=== PATIENT | male | born 1930 | race Caucasian/White ===

== ENCOUNTER 2018-03-13 12:48 | Inpatient (IN) ==
[2018-03-13 13:41] LABS: Basophils % 0.6 %; Eosinophils # 0.1 K/mcL (0.0-0.6); Eosinophils % 1.5 %; Hematocrit 32.7 % (37.5-50.1); Hemoglobin 9.8 g/dL (12.9-16.9); Immature Granulocytes % 0.3 % (0-4); Lymphocytes # 0.7 K/mcL (0.6-4.6); Lymphocytes % 11.2 %; Mean Corpuscular Hemoglobin 28.2 pg (28.0-33.3); Mean Corpuscular Volume 94.2 fL (83.0-100.0); Mean Platelet Volume 9.2 fL (9.4-12.4); Monocytes # 0.5 K/mcL (0.0-1.3); Monocytes % 8.1 %; Neutrophils # 4.8 K/mcL (1.6-8.9); Platelet Count 135 K/mcL (140-400); Red Blood Count 3.47 M/mcL (4.19-5.50); Red Cell Distribution Width 18.7 % (11.5-14.5); Segmented Neutrophils % 78.3 %
[2018-03-13 13:49] LABS: Activated Partial Thrombo Time 50.4 Seconds (26.0-36.0)
--- NOTE | 2018-03-13 13:56 | Emergency Department Note ---
Disposition Clinical Impression: CKD (chronic kidney disease) Qualifiers: Chronic kidney disease stage: stage 2 (mild) Qualified Code(s): N18.2 - Chronic kidney disease, stage 2 (mild) Atrial fibrillation Qualifiers: Atrial fibrillation type: chronic Qualified Code(s): I48.2 - Chronic atrial fibrillation Renal cell cancer Qualifiers: Laterality: unspecified laterality Qualified Code(s): C64.9 - Malignant neoplasm of unspecified kidney, except renal pelvis Anemia Qualifiers: Anemia type: other cause Other causes of anemia: other cause, not classified Qualified Code(s): D64.89 - Other specified anemias Hematuria Qualifiers: Hematuria type: gross Qualified Code(s): R31.0 - Gross hematuria Acute exacerbation of CHF (congestive heart failure) Qualifiers: Heart failure type: systolic Qualified Code(s): I50.23 - Acute on chronic systolic (congestive) heart failure Disposition: Admitted As Inpatient Time of Disposition: 17:22 General Adult HPI - General Chief complaint: ED General Medical Stated complaint: Hemturia,CHF,AMS Time Seen by Provider: 03/13/18 13:05 Source: patient Mode of arrival: ambulatory Limitations: no limitations Nursing Notes Reviewed: Yes Vital Signs Reviewed: Yes - History of Present Illness HPI Narrative: 87-year-old male with history of renal cell carcinoma, CHF arrives to the emergency department with concern for hematuria, difficulty breathing and is progressively worsened as well as bilateral lower surety swelling combined with family concern for alteration in mentation. Family notes this is been ongoing for the past couple days. Family physician instructed patient to come to the emergency department for diuresis. The patient has a history of liver cirrhosis and was noted to have no elevation in an ammonia level I day ago. The patient is on Xarelto for history of atrial fibrillation that is chronic. He denies any complaints at this time. He is lucid and answering questions appropriate but this seem slow to respond to some answers. Patient denies any specific complaints other than chronic unilateral leg swelling as well as chronic shortness of breath. The patient is resting comfortably in the room without any hypoxia or tachycardia. He has no abdominal pain on examination. The patient d oes have 2+ pitting edema bilateral lower extremities with chronic venous stasis changes. No other acute changes noted. Pain Scale: 0 - Related Data Home Medications Medication Instructions Recorded Confirmed Allopurinol [Zyloprim 100 MG] 200 mg PO DAILY 11/29/17 03/13/18 Atorvastatin [Lipitor] 20 mg PO HS 11/29/17 03/13/18 Cholecalciferol (Vitamin D3) 2,000 unit PO DAILY 11/29/17 03/13/18 [Vitamin D3] Digoxin [Lanoxin] 0.125 mg PO DAILY 11/29/17 03/13/18 Ferrous Gluconate 324 mg PO BID 11/29/17 03/13/18 Rivaroxaban [Xarelto] 15 mg PO DAILY 11/29/17 03/13/18 Vitamin B Complex [B Complex] 1 each PO DAILY 11/29/17 03/13/18 Bumetanide 8 mg PO DAILY 03/13/18 03/13/18 Metoprolol Succinate [Toprol Xl] 50 mg PO DAILY 03/13/18 03/13/18 Previous Rx's Medication Instructions Recorded Ascorbic Acid [Vitamin C] 500 mg PO 0630 #30 tablet 12/03/17 Tamsulosin [Flomax] 0.4 mg PO DAILY #30 capsule 12/03/17 Allergies Allergy/AdvReac Type Severity Reaction Status Date / Time No Known Allergies Allergy Verified 12/29/16 13:55 All systems ED: reviewed and negative except as stated. Constitutional: Reports: weakness. Denies: fever, chills ENT ED: Denies: dysphagia Cardiovascular: Denies: chest pain Respiratory: Reports: dyspnea. Denies: cough, wheezes, sputum production Gastrointestinal: Reports: hematochezia (baseline). Denies: abdominal pain, nausea, vomiting, diarrhea, constipation Genitourinary: Reports: hematuria. Denies: urgency, dysuria Musculoskeletal: Denies: back pain, neck pain Integumentary: Denies: rash Neurological: Reports: confusion. Denies: headache, weakness Past Medical History - Past Medical History Attestation: Yes The following information was validated with the patient. Source: patient, old records reviewed Medical history: Reports: atrial fibrillation, cirrhosis, GI bleed, other Surgical history: Reports: cancer surgery, cholecystectomy, coronary bypass (CABG), herniorrhaphy Psychiatric history: Reports: no psych history - Social History Smoking Status: Never smoker Smokeless Tobacco Status: No Alcohol use: Reports: none Drug use: Reports: none Physical Exam - General Limitations: no limitations General appearance: alert, in no apparent distress - Head Head exam: atraumatic, normocephalic, normal inspection - Eye Eye exam: Present: normal appearance, PERRL, EOMI - ENT ENT exam: normal exam, normal oropharynx, mucous membranes moist - Neck Neck exam: Present: normal inspection, full ROM, trachea midline - Chest Chest inspection: Present: normal inspection, symmetric chest wall rise - Respiratory Respiratory exam: Present: other (coarse breath sounds bilaterally) - Cardiovascular Cardiovascular exam: Present: tachycardia, irregular rhythm, normal heart sounds - Abdominal Exam Abdominal exam: Present: soft, Non-Tender. Absent: tenderness, distention, gu arding, rebound, rigidity - Extremities Exam Extremities exam: Present: full ROM, pedal edema (2+ pitting). Absent: tenderness - Neurological Exam Neurological exam: Present: alert, oriented X3, CN II-XII intact, normal gait - Skin Skin exam: Present: warm, dry, intact, normal color Course Vital Signs Temperature 97.6 F 03/13/18 13:00 Pulse Rate 117 03/13/18 13:00 Respiratory Rate 18 03/13/18 13:00 Blood Pressure 127/68 03/13/18 13:00 O2 Sat by Pulse Oximetry 98 03/13/18 13:00 Temperature 97.6 F 03/13/18 13:22 Pulse Rate 117 03/13/18 13:22 Respiratory Rate 18 03/13/18 13:22 Blood Pressure 127/68 03/13/18 13:22 O2 Sat by Pulse Oximetry 98 03/13/18 13:22 Oxygen Delivery Oxygen Delivery Room Air Medical Decision Making - [facility] Narrative Medical decision making narrative: Patient's workup in the emergency department demonstrates findings concerning for a CHF exacerbation. Patient was noted to have hematuria. He is anemic which is chronic on history evaluation. The patient's hematuria can be read and visualized through. I am not concerned about obstruction at this time as the patient is able to urinate. He is having no abdominal pain at this time. The patient will likely need further investigation of his hematuria. The patient's vital signs remained stable with the exception of some mild intermittent tachycardia secondary to atrial fibrillation. The patient's heart rate troubles anywhere between the low 1 teens to the low 90s. He is in no respiratory distress. Patient is not hypotensive. The patient will be admitted to the hospital for further workup and care at this time. Patient made aware and agrees to plan. No further questions or concerns noted. Accepted by Dr. Becker. - Lab Data Lab results reviewed: Yes I reviewed the patient's lab results. Result diagrams: 03/13/18 13:24 03/13/18 13:24 Lab Results 03/13/18 03/13/18 03/13/18 Range/Units 13:24 13:24 13:24 WBC 6.2 (4.3-11.1) K/mcL RBC 3.47 L (4.19-5.50) M/mcL Hgb 9.8 L (12.9-16.9) g/dL Hct 32.7 L (37.5-50.1) % MCV 94.2 (83.0-100.0) fL MCH 28.2 (28.0-33.3) pg MCHC 30.0 L (31.6-35.5) g/dL RDW 18.7 H (11.5-14.5) % Plt Count 135 L (140-400) K/mcL MPV 9.2 L (9.4-12.4) fL Immature Gran % 0.3 (0-4) % Seg Neutrophils % 78.3 % Lymphocytes % 11.2 % Monocytes % 8.1 % Eosinophils % 1.5 % Basophils % 0.6 % Neutrophils # 4.8 (1.6-8.9) K/mcL Lymphocytes # 0.7 (0.6-4.6) K/mcL Monocytes # 0.5 (0.0-1.3) K/mcL Eosinophils # 0.1 (0.0-0.6) K/mcL Basophils # 0.0 (0.0-0.2) K/mcL PT 23.0 H (9.4-12.1) Seconds INR 2.0 APTT 50.4 H (26.0-36.0) Seconds Sodium 139 (136-145) mEq/L Potassium 3.7 (3.5-5.1) mEq/L Chloride 101 (98-107) mEq/L Carbon Dioxide 28 (23-29) mEq/L BUN 22 (8-23) mg/dL Creatinine 1.50 H (0.70-1.30) mg/dL Est GFR ( Amer) 53 L (> 60) Est GFR (Non-Af Amer) 44 L (> 60) BUN/Creatinine Ratio 15 (6-26) Glucose 117 H (70-105) mg/dL Calculated Osmolality 292 (280-300) Lactic Acid (0.5-2.2) mmol/L Calcium 9.3 (8.6-10.3) mg/dL Magnesium 2.5 (1.6-2.6) mg/dL Total Bilirubin 1.1 H (0.3-1.0) mg/dL Direct Bilirubin 0.3 H (0.0-0.2) mg/dL Indirect Bilirubin 0.8 (0.0-1.2) mg/dL AST 40 H (13-39) Units/L ALT 24 (7-52) Units/L Alkaline Phosphatase 186 H (34-104) Units/L Ammonia (16-53) mcmol/L Troponin I 0.04 H* (< 0.04) ng/mL B-Natriuretic Peptide (Less than 100) pg/mL Serum Total Protein 7.0 (6.4-8.9) g/dL Albumin 4.1 (3.5-5.7) g/dL Globulin 2.9 (2.4-3.5) g/dL Albumin/Globulin Ratio 1.4 (1.1-2.2) Ur Specimen Adequacy Urine Color (Yellow) Urine Clarity (Clear) Urine pH (5.0-8.0) pH Units Ur Specific [place] (1.010-1.025) Urine Protein (Neg-Trace) mg/dL Urine Glucose (UA) (Normal) mg/dL Urine Ketones (Negative) mg/dL Urine Blood (Negative) Urine Nitrite (Negative) Urine Bilirubin (Negative) Urine Urobilinogen (Normal) mg/dL Ur Leukocyte Esterase (Negative) Ur Culture Indicated? (NO) 03/13/18 03/13/18 03/13/18 Range/Units 13:24 14:00 14:00 WBC (4.3-11.1) K/mcL RBC (4.19-5.50) M/mcL Hgb (12.9-16.9) g/dL Hct (37.5-50.1) % MCV (83.0-100.0) fL MCH (28.0-33.3) pg MCHC (31.6-35.5) g/dL RDW (11.5-14.5) % Plt Count (140-400) K/mcL MPV (9.4-12.4) fL Immature Gran % (0-4) % Seg Neutrophils % % Lymphocytes % % Monocytes % % Eosinophils % % Basophils % % Neutrophils # (1.6-8.9) K/mcL Lymphocytes # (0.6-4.6) K/mcL Monocytes # (0.0-1.3) K/mcL Eosinophils # (0.0-0.6) K/mcL Basophils # (0.0-0.2) K/mcL PT (9.4-12.1) Seconds INR APTT (26.0-36.0) Seconds Sodium (136-145) mEq/L Potassium (3.5-5.1) mEq/L Chloride (98-107) mEq/L Carbon Dioxide (23-29) mEq/L BUN (8-23) mg/dL Creatinine (0.70-1.30) mg/dL Est GFR ( Amer) (> 60) Est GFR (Non-Af Amer) (> 60) BUN/Creatinine Ratio (6-26) Glucose (70-105) mg/dL Calculated Osmolality (280-300) Lactic Acid 0.8 (0.5-2.2) mmol/L Calcium (8.6-10.3) mg/dL Magnesium (1.6-2.6) mg/dL Total Bilirubin (0.3-1.0) mg/dL Direct Bilirubin (0.0-0.2) mg/dL Indirect Bilirubin (0.0-1.2) mg/dL AST (13-39) Units/L ALT (7-52) Units/L Alkaline Phosphatase (34-104) Units/L Ammonia 31 (16-53) mcmol/L Troponin I (< 0.04) ng/mL B-Natriuretic Peptide 295 H (Less than 100) pg/mL Serum Total Protein (6.4-8.9) g/dL Albumin (3.5-5.7) g/dL Globulin (2.4-3.5) g/dL Albumin/Globulin Ratio (1.1-2.2) Ur Specimen Adequacy Urine Color (Yellow) Urine Clarity (Clear) Urine pH (5.0-8.0) pH Units Ur Specific [place] (1.010-1.025) Urine Protein (Neg-Trace) mg/dL Urine Glucose (UA) (Normal) mg/dL Urine Ketones (Negative) mg/dL Urine Blood (Negative) Urine Nitrite (Negative) Urine Bilirubin (Negative) Urine Urobilinogen (Normal) mg/dL Ur Leukocyte Esterase (Negative) Ur Culture Indicated? (NO) 03/13/18 Range/Units 15:49 WBC (4.3-11.1) K/mcL RBC (4.19-5.50) M/mcL Hgb (12.9-16.9) g/dL Hct (37.5-50.1) % MCV (83.0-100.0) fL MCH (28.0-33.3) pg MCHC (31.6-35.5) g/dL RDW (11.5-14.5) % Plt Count (140-400) K/mcL MPV (9.4-12.4) fL Immature Gran % (0-4) % Seg Neutrophils % % Lymphocytes % % Monocytes % % Eosinophils % % Basophils % % Neutrophils # (1.6-8.9) K/mcL Lymphocytes # (0.6-4.6) K/mcL Monocytes # (0.0-1.3) K/mcL Eosinophils # (0.0-0.6) K/mcL Basophils # (0.0-0.2) K/mcL PT (9.4-12.1) Seconds INR APTT (26.0-36.0) Seconds Sodium (136-145) mEq/L Potassium (3.5-5.1) mEq/L Chloride (98-107) mEq/L Carbon Dioxide (23-29) mEq/L BUN (8-23) mg/dL Creatinine (0.70-1.30) mg/dL Est GFR ( Amer) (> 60) Est GFR (Non-Af Amer) (> 60) BUN/Creatinine Ratio (6-26) Glucose (70-105) mg/dL Calculated Osmolality (280-300) Lactic Acid (0.5-2.2) mmol/L Calcium (8.6-10.3) mg/dL Magnesium (1.6-2.6) mg/dL Total Bilirubin (0.3-1.0) mg/dL Direct Bilirubin (0.0-0.2) mg/dL Indirect Bilirubin (0.0-1.2) mg/dL AST (13-39) Units/L ALT (7-52) Units/L Alkaline Phosphatase (34-104) Units/L Ammonia (16-53) mcmol/L Troponin I (< 0.04) ng/mL B-Natriuretic Peptide (Less than 100) pg/mL Serum Total Protein (6.4-8.9) g/dL Albumin (3.5-5.7) g/dL Globulin (2.4-3.5) g/dL Albumin/Globulin Ratio (1.1-2.2) Ur Specimen Adequacy See below A Urine Color Red A (Yellow) Urine Clarity Turbid A (Clear) Urine pH 6.0 (5.0-8.0) pH Units Ur Specific [place] 1.021 (1.010-1.025) Urine Protein 100 H (Neg-Trace) mg/dL Urine Glucose (UA) Normal (Normal) mg/dL Urine Ketones Trace H (Negative) mg/dL Urine Blood Large H (Negative) Urine Nitrite Negative (Negative) Urine Bilirubin Moderate H (Negative) Urine Urobilinogen Normal (Normal) mg/dL Ur Leukocyte Esterase Moderate H (Negative) Ur Culture Indicated? YES A (NO) - Radiology Data Radiology results reviewed: Yes I reviewed the patient's radiology results. Chest X-Ray 03/13/18 13:09 IMPRESSION: Stable chest. Cardiomegaly without overt failure. Small bilateral effusions. D/ / Marco Alcala MD / Marco Alcala MD Interpreting Provider: Marco Alcala MD Head CT 03/13/18 13:36 IMPRESSION: No acute intracranial abnormality. Cerebral atrophy. Stable exam. D/ / Barry Contreras MD / Barry Contreras MD Interpreting Provider: Barry Contreras MD - EKG Data EKG #1 EKG attestation: Yes I reviewed and interpreted this EKG. EKG results narrative: Heart rate 111 beats for minute. Atrial fibrillation. No ST elevation or ST depression noted. EKG similar in appearance to EKG from 11/29/2017. No acute changes with the exception of slightly more tachycardia. Attestation Statement - Attestation Attestation: I, Marv Patel, examined this patient and my medical decision-making was reviewed with the [employer]/PA/Advanced Practice Nurse/Resident Physician. I agree with the documented findings, disposition and treatment plan as described except to the extent set forth below. 87-year-old male presents emergency Department with concerns of evaluation of hematuria and difficulty in breathing secondary to possible acute congestive heart failure. Patient has a history of liver disease. He is also takes Xarelto for atrial fibrillation. Troponin was elevated 0.04. Patient had mild elevation of his creatinine. Patient will be admitted to hospitalist for further care and evaluation of his altered mental status.
[2018-03-13 14:08] LABS: Albumin 4.1 g/dL (3.5-5.7); Albumin/Globulin Ratio 1.4 (1.1-2.2); Bilirubin,Direct 0.3 mg/dL (0.0-0.2); Bilirubin,Indirect 0.8 mg/dL (0.0-1.2); Bilirubin,Total 1.1 mg/dL (0.3-1.0); Calcium 9.3 mg/dL (8.6-10.3); Globulin 2.9 g/dL (2.4-3.5); Magnesium 2.5 mg/dL (1.6-2.6); Potassium 3.7 mEq/L (3.5-5.1)
[2018-03-13 14:09] LABS: Troponin I 0.04 ng/mL (< 0.04)
[2018-03-13 16:01] LABS: Bilirubin,Urine Moderate (Negative); Blood,Urine Large (Negative); Clarity,Urine Turbid (Clear); Color,Urine Red (Yellow); Glucose,Urine (UA) Normal (Normal); Ketones,Urine Trace mg/dL (Negative); Leukocyte Esterase,Urine Moderate (Negative); Nitrite,Urine Negative (Negative); Protein,Urine 100 mg/dL (Neg-Trace); Specific Gravity,Urine 1.021 (1.010-1.025); Urobilinogen,Urine Normal (Normal)
[2018-03-13] MEDS ORDERED: Furosemide 40 MG/4 ML VIAL IVP ONE (17:18)
--- NOTE | 2018-03-13 17:27 | Electrocardiograph Report ---
[address] [place] [address] Test Date: 2018-03-13 Pat Name: Nahid Sunshine Department: [id number] Room: Gender: M Visual Designer: : [id number] Requested By: James Helton Order Number: [id number] Reading MD: Eren Pringle Measurements Intervals [place] Rate: 111 P: HI: QRS: -37 QRSD: 139 T: 135 QT: 343 QTc: 467 Interpretive Statements Atrial fibrillation Ventricular premature complex Left bundle branch block Electronically Signed On 03-13-2018 17:25:26 EST by Eren Pringle
--- NOTE | 2018-03-13 18:40 | Internal Med History&Physical ---
Date of Encounter: 03/13/18 Time of Encounter: 18:00 Internal Medicine - H&P: HPI Chief complaint: Hematuria Admitted From: Home Plans for Post Hospital Care: Home History of present illness: Patient is a 87-year-old male with past medical history significant for left renal cell carcinoma being managed by hematology/oncologist at [facility], systolic heart failure, liver cirrhosis with portal hypertension, chronic atrial fibrillation (on Xarelto) and CKD stage III who presents to the ER on 03/13/18 due to gross hematuria. Patient is a poor historian due to recent worsening confusion but his daughter at the bedside reports that patient has had a three-week history of gross hematuria. Patient has also had increased bilateral lower extremity edema. Patient was at his primary care providers office who recommended him come into the ER for evaluation. In the ER, patient was noted to have gross hematuria on witnessed urine sample. Patient was also noted to have slightly elevated troponin at 0.04 with a BNP of 295. Chest x-ray showed stable chest with cardiomegaly without overt failure and small bilateral effusions. Head CT revealed no acute abnormal findings. Patient will be admitted to medical surgical floor for workup of gross hematuria and acute on chronic systolic heart failure. Past Med Surg Social Fam HX - Past Medical History Medical history: atrial fibrillation, cirrhosis, GI bleed, other Additional medical history: lesions in lungs seen at [facility]. anemia. cellulitis. 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 portal hypertension. diverticulitis. LBBB Psychiatric history: no psych history - Past Surgical History Surgical History: cancer surgery, cholecystectomy, coronary bypass (CABG), herniorrhaphy Additional surgical history: hernia repair x 2. colonoscopy - Social History Smoking Status: Never smoker Smokeless Tobacco Status: No Alcohol use: none Drug use: none - Family History Mother Hx Family Cancer: Yes Father Living Status: Hx Family Cardiac Disorders: Yes Hx Family Respiratory Disorders: No Hx Family Cancer: No Hx Family GI Disorders: No Hx Family Endocrine Disorder: No Hx Family Neuromuscular Disorders: No Hx Family Neurologic Disorders: No Hx Family HEENT Disorders: No Hx Family Autoimmune Disorders: No Internal Medicine - H&P: Meds Allopurinol [Zyloprim 100 MG] 200 mg PO DAILY 11/29/17 [History] Atorvastatin [Lipitor] 20 mg PO HS 11/29/17 [History] Cholecalciferol (Vitamin D3) [Vitamin D3] 2,000 unit PO DAILY 11/29/17 [History] Digoxin [Lanoxin] 0.125 mg PO DAILY 11/29/17 [History] Ferrous Gluconate 324 mg PO BID 11/29/17 [History] Metoprolol Succinate [[place] Sprinkle] 50 mg PO DAILY 11/29/17 [History] Rivaroxaban [Xarelto] 15 mg PO DAILY 11/29/17 [History] Vitamin B Complex [B Complex] 1 each PO DAILY 11/29/17 [History] Ascorbic Acid [Vitamin C] 500 mg PO 0630 #30 tablet 12/03/17 [Rx] Bumetanide [Bumex] 1.5 mg PO DAILY tablet 12/03/17 [Rx] Cefuroxime PO [Ceftin] 500 mg PO Q12HR #10 tablet 12/03/17 [Rx] Lactobacillus [Culturelle] 1 each PO BID #10 cap.sprink 12/03/17 [Rx] Tamsulosin [Flomax] 0.4 mg PO DAILY #30 capsule 12/03/17 [Rx] 3 Allergy/AdvReac Type Severity Reaction Status Date / Time No Known Allergies Allergy Verified 12/29/16 13:55 All Systems PM: A 10-system review of systems was performed and is negative for pertinent findings except as documented above in the HPI. - Constitutional Vitals: Temp Pulse Resp BP Pulse Ox 97.6 F 107 18 120/88 97 03/13/18 13:22 03/13/18 17:54 03/13/18 17:54 03/13/18 17:54 03/13/18 17:54 General appearance: Present: A&O X 3, no acute distress Exam: As above - Head Head exam: Present: normocephalic - Eye Eye exam: Present: normal appearance - ENT ENT exam: Present: mucous membranes dry - Respiratory Respiratory exam: Present: CTAB. Absent: accessory muscle use, rales, rhonchi, wheezes - Cardiovascular Cardiovascular exam: Present: RRR, +S1, +S2. Absent: diastolic murmur, gallop, rubs, systolic murmur - GI/Abdominal GI/Abdominal exam: Present: normal bowel sounds, soft, no peritoneal signs. Absent: distended, tenderness - Expanded Lower Extremities Exam Lower Leg exam: Present: swelling (Bilateral +1 pitting edema up to knee) - Neurological Exam Neurological exam: Present: oriented X3 - Psychiatric Psychiatric exam: Present: normal mood - Skin Skin exam: Present: normal color Internal Med - H&P Results - Labs CBC & Chem 7: 03/13/18 13:24 03/13/18 13:24 Labs: Short CBC 03/13/18 Range/Units 13:24 WBC 6.2 (4.3-11.1) K/mcL Hgb 9.8 L (12.9-16.9) g/dL Hct 32.7 L (37.5-50.1) % Plt Count 135 L (140-400) K/mcL Neutrophils # 4.8 (1.6-8.9) K/mcL BMP 03/13/18 13:24 Sodium 139 Potassium 3.7 Chloride 101 Carbon Dioxide 28 BUN 22 Creatinine 1.50 H Glucose 117 H Calcium 9.3 Cardiac Enzymes 03/13/18 Range/Units 13:24 Troponin I 0.04 H* (< 0.04) ng/mL Liver Function 03/13/18 Range/Units 13:24 Total Bilirubin 1.1 H (0.3-1.0) mg/dL Direct Bilirubin 0.3 H (0.0-0.2) mg/dL AST 40 H (13-39) Units/L ALT 24 (7-52) Units/L Alkaline Phosphatase 186 H (34-104) Units/L Albumin 4.1 (3.5-5.7) g/dL Urine 03/13/18 Range/Units 15:49 Urine Color Red A (Yellow) Urine Clarity Turbid A (Clear) Urine pH 6.0 (5.0-8.0) pH Units Ur Specific [place] 1.021 (1.010-1.025) Urine Protein 100 H (Neg-Trace) mg/dL Urine Glucose (UA) Normal (Normal) mg/dL - Impressions ITS Impressions Chest X-Ray 03/13/18 13:09 IMPRESSION: Stable chest. Cardiomegaly without overt failure. Small bilateral effusions. D/ / Marco Alcala MD / Marco Alcala MD Interpreting Provider: Marco Alcala MD Head CT 03/13/18 13:36 IMPRESSION: No acute intracranial abnormality. Cerebral atrophy. Stable exam. D/ / Barry Contreras MD / Barry Contreras MD Interpreting Provider: Barry Contreras MD - Assessment and plan (1) Hematuria Current Visit: Yes Status: Acute Assessment and plan: Patient reports of gross hematuria for approximately 3 weeks with past medical history significant for left renal cell carcinoma being managed by hematology oncologist at [facility] Patient is hemodynamically stable and hemoglobin appears to be at baseline Patient is currently on Xarelto for oral anticoagulation for chronic atrial fibrillation. Urology consulted and appreciate recommendations Qualifiers: Hematuria type: gross Qualified Code(s): R31.0 - Gross hematuria (2) Renal cell cancer Current Visit: Yes Status: Chronic Assessment and plan: Patient with a history of left renal cell carcinoma as above who was initially seen here at [facility] but now managed at [facility] We will consult hematology oncologist and appreciate any recommendations. Qualifiers: Laterality: unspecified laterality Qualified Code(s): C64.9 - Malignant neoplasm of unspecified kidney, except renal pelvis (3) Acute on chronic systolic (congestive) heart failure Current Visit: Yes Status: Acute Assessment and plan: Patient with worsening bilateral lower extremity edema per daughter at the bedside with elevated BNP Will continue IV diuresis started in the ER (4) Elevated troponin Current Visit: Yes Status: Acute Assessment and plan: Patient found to have elevated troponin of 0.04 on admission Will trend serial troponins and monitor on telemetry (5) CKD (chronic kidney disease) stage 3, GFR 30-59 ml/min Status: Acute Assessment and plan: Patient with a creatinine of 1.50 on admission which appears to be at his baseline. Will continue to monitor (6) Cirrhosis Current Visit: No Status: Acute Assessment and plan: Patient with known history of liver cirrhosis with portal hypertension Qualifiers: Qualified Code(s): K74.60 - Unspecified cirrhosis of liver (7) Chronic a-fib Current Visit: Yes Status: Acute Assessment and plan: Will continue patient's home dose of digoxin and rate controlled with metoprolol succinate (8) Chronic anemia Current Visit: Yes Status: Acute Assessment and plan: Patient's hemoglobin at 9.8 on admission which appears to be at baseline. We will continue patient's home dose of ferrous gluconate Continue to monitor (9) DVT prophylaxis Current Visit: Yes Status: Acute Assessment and plan: Will continue Xarelto for now due to chronic atrial fibrillation - Time Spent With Patient Total time spent is greater than 50% in coordination of care (as documented) at patient's floor/unit and/or counseling patient:
[2018-03-13] MEDS ORDERED: Naloxone 0.4 MG/ML INJ IVP PRN (18:52)
[2018-03-14 01:07] LABS: Basophils % 0.5 %; Eosinophils # 0.1 K/mcL (0.0-0.6); Eosinophils % 0.9 %; Hematocrit 28.8 % (37.5-50.1); Hemoglobin 8.7 g/dL (12.9-16.9); Immature Granulocytes % 0.3 % (0-4); Lymphocytes # 0.7 K/mcL (0.6-4.6); Lymphocytes % 10.9 %; Mean Corpuscular HGB Conc 30.2 g/dL (31.6-35.5); Mean Corpuscular Hemoglobin 28.2 pg (28.0-33.3); Mean Corpuscular Volume 93.2 fL (83.0-100.0); Mean Platelet Volume 9.4 fL (9.4-12.4); Monocytes # 0.5 K/mcL (0.0-1.3); Neutrophils # 5.2 K/mcL (1.6-8.9); Platelet Count 125 K/mcL (140-400); Red Blood Count 3.09 M/mcL (4.19-5.50); Red Cell Distribution Width 18.6 % (11.5-14.5); Segmented Neutrophils % 79.4 %
[2018-03-14 01:26] LABS: Calcium 8.5 mg/dL (8.6-10.3); Potassium 3.5 mEq/L (3.5-5.1)
--- NOTE | 2018-03-14 08:52 | Urology - Consult Note ---
Date of Encounter: 03/14/18 Time of Encounter: 08:49 - Assessment and Plan (1) Acquired renal cyst Current Visit: Yes Status: Acute Assessment and plan: Patient with benign acquired bilateral renal cysts. No intervention needed for these. (2) Hematuria Current Visit: Yes Status: Acute Assessment and plan: Patient's gross hematuria appears stable. He is able to void at this time. We will plan on adding finasteride as the likely source of his hematuria is his prostate. Patient will need cystoscopic evaluation in the future. We will continue to follow along closely. Qualifiers: Hematuria type: gross Qualified Code(s): R31.0 - Gross hematuria (3) Renal cell cancer Current Visit: Yes Status: Chronic Assessment and plan: Patient will need to keep his follow-up with [facility] urology as the patient's renal mass is slowly getting bigger based on recent CT scan. Qualifiers: Laterality: unspecified laterality Qualified Code(s): C64.9 - Malignant neoplasm of unspecified kidney, except renal pelvis (4) SARA (acute kidney injury) Current Visit: No Status: Acute Assessment and plan: Patient serum creatinine slightly above baseline at 1.5 yesterday to 1.7 today. We will continue to follow along closely. If this fails to improve will need repeat upper tract imaging with likely CT scan and possible catheter placement. Urology CN:HPI Consult date: 03/14/18 Reason for consult Urology: Gross Hematuria Requesting physician: Jorge Razo History of present illness: Nahid is a 87-year-old male who presented to the emergency Department secondary to CHF exacerbation with some significant lower extremity swelling. Patient also with worsening gross hematuria over the past few months. Patient's past medical history from urology standpoint is significant for a known left renal mass which is biopsy-proven renal cell carcinoma. Patient underwent renal mass ablation by cryotherapy in May 2017. Patient CT scan from this fall reveals that the mass may be getting larger. Patient does have a follow-up with Dr. Traylor at [facility] in 05/27/2018. Upon review the patient's chart I cannot find anywhere with the patient has had a cystoscopy. CT scan which was reviewed from earlier this fall showed a very large prostate but his bladder was decompressed with a catheter. Patient states that at this time while he has had some off-and-on hematuria he is able to empty his bladder. Patient was not on any medication recently for his prostate. Patient has had multiple urine cultures done recently which are negative for bacteria. Patient also has multiple bilateral renal cysts. Past Med Surg Social Fam HX - Past Medical History Medical history: atrial fibrillation, cirrhosis, GI bleed, other Additional medical history: lesions in lungs seen at [facility]. anemia. cellulitis. 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 portal hypertension. diverticulitis. LBBB Psychiatric history: no psych history - Past Surgical History Surgical History: cancer surgery, cholecystectomy, coronary bypass (CABG), herniorrhaphy Additional surgical history: hernia repair x 2. colonoscopy - Social History Smoking Status: Never smoker Smokeless Tobacco Status: No Alcohol use: none Drug use: none - Family History Mother Hx Family Cancer: Yes Father Living Status: Hx Family Cardiac Disorders: Yes Hx Family Respiratory Disorders: No Hx Family Cancer: No Hx Family GI Disorders: No Hx Family Endocrine Disorder: No Hx Family Neuromuscular Disorders: No Hx Family Neurologic Disorders: No Hx Family HEENT Disorders: No Hx Family Autoimmune Disorders: No Medications and Allergies Allopurinol [Zyloprim 100 MG] 200 mg PO DAILY 11/29/17 [History] Atorvastatin [Lipitor] 20 mg PO HS 11/29/17 [History] Cholecalciferol (Vitamin D3) [Vitamin D3] 2,000 unit PO DAILY 11/29/17 [History] Digoxin [Lanoxin] 0.125 mg PO DAILY 11/29/17 [History] Ferrous Gluconate 324 mg PO BID 11/29/17 [History] Rivaroxaban [Xarelto] 15 mg PO DAILY 11/29/17 [History] Vitamin B Complex [B Complex] 1 each PO DAILY 11/29/17 [History] Ascorbic Acid [Vitamin C] 500 mg PO 0630 #30 tablet 12/03/17 [Rx] Tamsulosin [Flomax] 0.4 mg PO DAILY #30 capsule 12/03/17 [Rx] Bumetanide 8 mg PO DAILY 03/13/18 [History] Metoprolol Succinate [Toprol Xl] 50 mg PO DAILY 03/13/18 [History] Allergy/AdvReac Type Severity Reaction Status Date / Time No Known Allergies Allergy Verified 12/29/16 13:55 Review of Systems ROS unobtainable: due to mental status Exam Initial Vital Signs Temp Pulse Resp BP Pulse Ox 97.6 F 117 18 127/68 98 03/13/18 13:00 03/13/18 13:00 03/13/18 13:00 03/13/18 13:00 03/13/18 13:00 General/Neuological: alert but appears slightly confused this morning Eyes: normal pupils, non-icteric Neck: no lymphadenopathy noted, supple to touch Cardiovascular: Tachycardic rate, no JVD Respiratory: normal respiratory effort, clear bilaterally ABD: soft, nontender, no masses palpated, good bowel sounds Back: no pain on percussion bilaterally : normal phallus, normal scrotum, testicles and epididymides normal, urethral meatus normal. Skin: no rashes noted Musculoskeletal: Significant lower extremity edema, FROMx4 Urology Results - Labs 03/14/18 00:36 03/14/18 00:36 Abnormal lab results RBC 3.09 M/mcL (4.19-5.50) L 03/14/18 00:36 Hgb 8.7 g/dL (12.9-16.9) L 03/14/18 00:36 Hct 28.8 % (37.5-50.1) L 03/14/18 00:36 MCHC 30.2 g/dL (31.6-35.5) L 03/14/18 00:36 RDW 18.6 % (11.5-14.5) H 03/14/18 00:36 Plt Count 125 K/mcL (140-400) L 03/14/18 00:36 PT 23.0 Seconds (9.4-12.1) H 03/13/18 13:24 APTT 50.4 Seconds (26.0-36.0) H 03/13/18 13:24 Carbon Dioxide 31 mEq/L (23-29) H 03/14/18 00:36 BUN 24 mg/dL (8-23) H 03/14/18 00:36 Creatinine 1.71 mg/dL (0.70-1.30) H 03/14/18 00:36 Est GFR ( Amer) 46 (> 60) L 03/14/18 00:36 Est GFR (Non-Af Amer) 38 (> 60) L 03/14/18 00:36 Glucose 153 mg/dL (70-105) H 03/14/18 00:36 Calcium 8.5 mg/dL (8.6-10.3) L 03/14/18 00:36 Total Bilirubin 1.1 mg/dL (0.3-1.0) H 03/13/18 13:24 Direct Bilirubin 0.3 mg/dL (0.0-0.2) H 03/13/18 13:24 AST 40 Units/L (13-39) H 03/13/18 13:24 Alkaline Phosphatase 186 Units/L (34-104) H 03/13/18 13:24 Troponin I 0.04 ng/mL (< 0.04) H* 03/14/18 06:54 B-Natriuretic Peptide 295 pg/mL (Less than 100) H 03/13/18 14:00 Ur Specimen Adequacy See below A 03/13/18 15:49 Urine Color Red (Yellow) A 03/13/18 15:49 Urine Clarity Turbid (Clear) A 03/13/18 15:49 Urine Protein 100 mg/dL (Neg-Trace) H 03/13/18 15:49 Urine Ketones Trace mg/dL (Negative) H 03/13/18 15:49 Urine Blood Large (Negative) H 03/13/18 15:49 Urine Bilirubin Moderate (Negative) H 03/13/18 15:49 Ur Leukocyte Esterase Moderate (Negative) H 03/13/18 15:49 Ur Culture Indicated? YES (NO) A 03/13/18 15:49 Diabetes panel 03/13/18 03/14/18 Range/Units 13:24 00:36 Sodium 139 138 (136-145) mEq/L Potassium 3.7 3.5 (3.5-5.1) mEq/L Chloride 101 101 (98-107) mEq/L Carbon Dioxide 28 31 H (23-29) mEq/L BUN 22 24 H (8-23) mg/dL Creatinine 1.50 H 1.71 H (0.70-1.30) mg/dL Glucose 117 H 153 H (70-105) mg/dL Calcium 9.3 8.5 L (8.6-10.3) mg/dL AST 40 H (13-39) Units/L ALT 24 (7-52) Units/L Alkaline Phosphatase 186 H (34-104) Units/L Albumin 4.1 (3.5-5.7) g/dL Calcium panel 03/13/18 03/14/18 Range/Units 13:24 00:36 Calcium 9.3 8.5 L (8.6-10.3) mg/dL Albumin 4.1 (3.5-5.7) g/dL Pituitary panel 03/13/18 03/14/18 Range/Units 13:24 00:36 Sodium 139 138 (136-145) mEq/L Potassium 3.7 3.5 (3.5-5.1) mEq/L Chloride 101 101 (98-107) mEq/L Carbon Dioxide 28 31 H (23-29) mEq/L BUN 22 24 H (8-23) mg/dL Creatinine 1.50 H 1.71 H (0.70-1.30) mg/dL Glucose 117 H 153 H (70-105) mg/dL Calcium 9.3 8.5 L (8.6-10.3) mg/dL Adrenal panel 03/13/18 03/14/18 Range/Units 13:24 00:36 Sodium 139 138 (136-145) mEq/L Potassium 3.7 3.5 (3.5-5.1) mEq/L Chloride 101 101 (98-107) mEq/L Carbon Dioxide 28 31 H (23-29) mEq/L BUN 22 24 H (8-23) mg/dL Creatinine 1.50 H 1.71 H (0.70-1.30) mg/dL Glucose 117 H 153 H (70-105) mg/dL Calcium 9.3 8.5 L (8.6-10.3) mg/dL Total Bilirubin 1.1 H (0.3-1.0) mg/dL AST 40 H (13-39) Units/L ALT 24 (7-52) Units/L Alkaline Phosphatase 186 H (34-104) Units/L Albumin 4.1 (3.5-5.7) g/dL All other labs normal. Consult Discharge Plan - Plan Referrals: Haider Fraga MD [Primary Care Provider] - (Your appointment has been requested. Our offices will call you with an appointment time and date.)
[2018-03-14] MEDS: *HR* Digoxin 0.125 MG TABLET PO SCH (09:09)
[2018-03-14] MEDS: Finasteride 5 MG TABLET PO SCH (09:09)
[2018-03-14] MEDS: Bumetanide 1 MG/4 ML VIAL IVP SCH ×2 (09:09→16:00)
--- NOTE | 2018-03-14 10:24 | Internal Med Progress Note ---
Hospitalist Progress Note - Encounter Date of Encounter: 03/14/18 Time of Encounter: 11:00 - Subjective Interval History: Patient with past medical history significant for left renal cell carcinoma presents with a three-week history of gross hematuria - Exam Vitals: Temp Pulse Resp BP Pulse Ox 98.1 F 119 16 115/65 94 03/14/18 06:43 03/14/18 06:43 03/14/18 06:43 03/14/18 06:43 03/14/18 06:43 Exam: Gen.: Nonacute distress, alert and oriented 3 ENT: Mucosal membranes moist Respiratory: Lungs are clear to auscultation bilaterally without any wheezing rhonchi or rales Cardiovascular: Normal S1 and S2 regular rate rhythm no murmurs rubs or gallops Abdomen: Soft, nontender and nondistended with positive bowel sounds Extremities: Bilateral lower extremity +1 pitting edema Skin: Normal color - Assessment and Plan (1) Hematuria Current Visit: Yes Status: Acute Assessment and Plan: Patient reports of gross hematuria for approximately 3 weeks with past medical history significant for left renal cell carcinoma being managed by hematology oncologist at [facility] Patient is hemodynamically stable and hemoglobin appears to be at baseline Patient is currently on Xarelto for oral anticoagulation for chronic atrial fibrillation. Urology consulted with recommendations to start patient on finasteride as suspects prostate part of the problem Additional recommendations for cystoscopy evaluation in the future (2) Renal cell cancer Current Visit: Yes Status: Chronic Assessment and Plan: Patient with a history of left renal cell carcinoma who was initially seen here at [place] [facility] but now managed at [facility] Repeat CT exam concerning for enlarging renal mass Patient will need to keep continued follow up appointments with hematology oncology at [facility] (3) Acute on chronic systolic (congestive) heart failure Current Visit: Yes Status: Acute Assessment and Plan: Patient with worsening bilateral lower extremity edema per daughter at the bedside with elevated BNP Will continue IV diuresis started in the ER (4) Elevated troponin Current Visit: Yes Status: Acute Assessment and Plan: Patient found to have elevated troponinon admission: 0.04->0.04->0.03->0.04 Suspect secondary to demand ischemia as troponins adynamic Continue to monitor on telemetry (5) CKD (chronic kidney disease) stage 3, GFR 30-59 ml/min Status: Acute Assessment and Plan: Patient with a creatinine of 1.50 on admission and is now 1.71 this morning Medications per urology if no improvement for consideration for repeat upper tract imaging with likely CT scan and possible catheter placement. Urology following in appreciate any additional recommendations (6) Cirrhosis Current Visit: No Status: Acute Assessment and Plan: Patient with known history of liver cirrhosis with portal hypertension (7) Chronic a-fib Current Visit: Yes Status: Acute Assessment and Plan: Will continue patient's home dose of digoxin and rate controlled with metoprolol succinate Patient's Xarelto currently being held due to gross hematuria above (8) Chronic anemia Current Visit: Yes Status: Acute Assessment and Plan: Patient's hemoglobin at 9.8 on admission and 8.7 this morning Will continue patient's home dose of ferrous gluconate Continue to monitor DVT Prophylaxis: Xarelto currently being held due to hematuria above - Time Spent with Patient Total time spent is greater than 50% in coordination of care (as documented) at patient's floor/unit and/or counseling patient: Internal Medicine: Result - Labs CBC & Chem 7: 03/14/18 00:36 03/14/18 00:36 Labs: Short CBC 03/13/18 03/14/18 Range/Units 13:24 00:36 WBC 6.2 6.6 (4.3-11.1) K/mcL Hgb 9.8 L 8.7 L (12.9-16.9) g/dL Hct 32.7 L 28.8 L (37.5-50.1) % Plt Count 135 L 125 L (140-400) K/mcL Neutrophils # 4.8 5.2 (1.6-8.9) K/mcL BMP 03/13/18 03/14/18 13:24 00:36 Sodium 139 138 Potassium 3.7 3.5 Chloride 101 101 Carbon Dioxide 28 31 H BUN 22 24 H Creatinine 1.50 H 1.71 H Glucose 117 H 153 H Calcium 9.3 8.5 L Cardiac Enzymes 03/13/18 03/13/18 03/14/18 Range/Units 13:24 19:04 00:36 Troponin I 0.04 H* 0.04 H* 0.03 (< 0.04) ng/mL 03/14/18 Range/Units 06:54 Troponin I 0.04 H* (< 0.04) ng/mL Liver Function 03/13/18 Range/Units 13:24 Total Bilirubin 1.1 H (0.3-1.0) mg/dL Direct Bilirubin 0.3 H (0.0-0.2) mg/dL AST 40 H (13-39) Units/L ALT 24 (7-52) Units/L Alkaline Phosphatase 186 H (34-104) Units/L Albumin 4.1 (3.5-5.7) g/dL Urine 03/13/18 Range/Units 15:49 Urine Color Red A (Yellow) Urine Clarity Turbid A (Clear) Urine pH 6.0 (5.0-8.0) pH Units Ur Specific [place] 1.021 (1.010-1.025) Urine Protein 100 H (Neg-Trace) mg/dL Urine Glucose (UA) Normal (Normal) mg/dL - ABG Interpretation ABG results: PT/INR, D-dimer PT 23.0 Seconds (9.4-12.1) H 03/13/18 13:24 - Impressions Impressions Chest X-Ray 03/13/18 13:09 IMPRESSION: Stable chest. Cardiomegaly without overt failure. Small bilateral effusions. D/ / Marco Alcala MD / Marco Alcala MD Interpreting Provider: Marco Alcala MD Head CT 03/13/18 13:36 IMPRESSION: No acute intracranial abnormality. Cerebral atrophy. Stable exam. D/ / Barry Contreras MD / Barry Contreras MD Interpreting Provider: Barry Contreras MD Consult Discharge Plan - Plan Referrals: Haider Fraga MD [Primary Care Provider] - (Your appointment has been requested. Our offices will call you with an appointment time and date.) (1) Hematuria Qualifiers: Hematuria type: gross Qualified Code(s): R31.0 - Gross hematuria (2) Renal cell cancer Qualifiers: Laterality: unspecified laterality Qualified Code(s): C64.9 - Malignant neop lasm of unspecified kidney, except renal pelvis (6) Cirrhosis Qualifiers: Qualified Code(s): K74.60 - Unspecified cirrhosis of liver
--- NOTE | 2018-03-15 07:19 | Urology Progress Note ---
Date of Encounter: 03/15/18 Time of Encounter: 07:18 - Assessment and Plan (1) Acquired renal cyst Current Visit: Yes Status: Acute (2) Hematuria Current Visit: Yes Status: Acute Assessment and plan: Continue with diuresis. No indication at this time for catheter placement. Expectation that hematuria will continue to improve. If this fails to improve significantly more by tomorrow patient will likely need imaging study for evaluation. Qualifiers: Hematuria type: gross Qualified Code(s): R31.0 - Gross hematuria (3) Renal cell cancer Current Visit: Yes Status: Chronic Qualifiers: Laterality: unspecified laterality Qualified Code(s): C64.9 - Malignant neoplasm of unspecified kidney, except renal pelvis (4) SARA (acute kidney injury) Current Visit: No Status: Acute Assessment and plan: Labs pending at this time Progress Note Narrative: Patient seen this morning. Patient states that he is voiding well. A urinal on the table contained approximately 2-300 mL's of urine which was grossly bloody. No obvious clots seen. Objective Initial Vital Signs Temp Pulse Resp BP Pulse Ox 97.6 F 117 18 127/68 98 03/13/18 13:00 03/13/18 13:00 03/13/18 13:00 03/13/18 13:00 03/13/18 13:00 - General physical appearance Present: well developed, well nourished - Abdomen Present: soft. Absent: tender - Labs 03/14/18 00:36 03/14/18 00:36 - VTE Documentation of Mechanical Device: Intermittent pneumatic compression device Consult Discharge Plan - Plan Referrals: Haider Fraga MD [Primary Care Provider] - (Your appointment has been requested. Our offices will call you with an appointment time and date.)
[2018-03-15] MEDS: *HR* Digoxin 0.125 MG TABLET PO SCH (08:11)
[2018-03-15] MEDS: Bumetanide 1 MG/4 ML VIAL IVP SCH ×2 (08:11→16:33)
[2018-03-15] MEDS: Finasteride 5 MG TABLET PO SCH (08:11)
--- NOTE | 2018-03-15 10:27 | Internal Med Progress Note ---
Hospitalist Progress Note - Encounter Date of Encounter: 03/15/18 Time of Encounter: 11:00 - Subjective Interval History: Patient with past medical history significant for left renal cell carcinoma presents with a three-week history of gross hematuria in addition to bilateral lower extremity edema secondary to acute on chronic systolic heart failure Patient with little improvement in lower extremity edema on IV diuresis. Patient also without much improvement a hematuria - Exam Vitals: Temp Pulse Resp BP Pulse Ox 97.3 F L 89 18 115/69 93 03/15/18 06:28 03/15/18 06:28 03/15/18 06:28 03/15/18 06:28 03/15/18 06:28 Exam: Gen.: Nonacute distress, alert and oriented 3 ENT: Mucosal membranes moist Respiratory: Lungs are clear to auscultation bilaterally without any wheezing rhonchi or rales Cardiovascular: Normal S1 and S2 regular rate rhythm no murmurs rubs or gallops Abdomen: Soft, nontender and nondistended with positive bowel sounds Extremities: Bilateral lower extremity +1 pitting edema Skin: Normal color - Assessment and Plan (1) Hematuria Current Visit: Yes Status: Acute Assessment and Plan: Patient reports of gross hematuria for approximately 3 weeks with past medical history significant for left renal cell carcinoma being managed by hematology oncologist at [facility] Patient is hemodynamically stable and hemoglobin appears to be at baseline Patient was on Xarelto for oral anticoagulation for chronic atrial fibrillation. Urology consulted with recommendations to continue finasteride for possible prostate etiology Consideration for further imaging per urology if no improvement hematuria; recommendations appreciated (2) Renal cell cancer Current Visit: Yes Status: Chronic Assessment and Plan: Patient with a history of left renal cell carcinoma who was initially seen here at [place] [facility] onc[facility] but now managed at [facility] Repeat CT exam concerning for enlarging renal mass Patient will need to keep continued follow up appointments with hematology oncology at [facility] (3) Acute on chronic systolic (congestive) heart failure Current Visit: Yes Status: Acute Assessment and Plan: Patient with worsening bilateral lower extremity edema with elevated BNP Will continue IV diuresis with Bumex (4) Elevated troponin Current Visit: Yes Status: Acute Assessment and Plan: Patient found to have elevated troponinon admission: 0.04->0.04->0.03->0.04 Suspect secondary to demand ischemia as troponins adynamic Continue to monitor on telemetry (5) CKD (chronic kidney disease) stage 3, GFR 30-59 ml/min Status: Acute Assessment and Plan: Patient with stable chronic CKD 3 SCr: 1.50->1.71-> (6) Cirrhosis Current Visit: No Status: Acute Assessment and Plan: Patient with known history of liver cirrhosis with portal hypertension (7) Chronic a-fib Current Visit: Yes Status: Acute Assessment and Plan: Will continue patient's home dose of digoxin and rate controlled with metoprolol succinate Patient's Xarelto currently being held due to gross hematuria above (8) Chronic anemia Current Visit: Yes Status: Acute Assessment and Plan: Stable; continue to monitor Will continue patient's home dose of ferrous gluconate DVT Prophylaxis: Xarelto currently being held due to hematuria above - Time Spent with Patient Total time spent is greater than 50% in coordination of care (as documented) at patient's floor/unit and/or counseling patient: Internal Medicine: Result - Labs CBC & Chem 7: 03/15/18 11:52 03/15/18 10:32 - ABG Interpretation ABG results: PT/INR, D-dimer PT 23.0 Seconds (9.4-12.1) H 03/13/18 13:24 - VTE Documentation of Mechanical Device: Intermittent pneumatic compression device Consult Discharge Plan - Plan Referrals: Haider Fraga MD [Primary Care Provider] - (Your appointment has been requested. Our offices will call you with an appointment time and date.) (1) Hematuria Qualifiers: Hematuria type: gross Qualified Code(s): R31.0 - Gross hematuria (2) Renal cell cancer Qualifiers: Laterality: unspecified laterality Qualified Code(s): C64.9 - Malignant neoplasm of unspecified kidney, except renal pelvis (6) Cirrhosis Qualifiers: Qualified Code(s): K74.60 - Unspecified cirrhosis of liver
[2018-03-15 12:06] LABS: Basophils % 0.3 %; Eosinophils # 0.1 K/mcL (0.0-0.6); Hematocrit 31.7 % (37.5-50.1); Hemoglobin 9.4 g/dL (12.9-16.9); Immature Granulocytes % 0.8 % (0-4); Lymphocytes # 0.6 K/mcL (0.6-4.6); Lymphocytes % 9.9 %; Mean Corpuscular HGB Conc 29.7 g/dL (31.6-35.5); Mean Corpuscular Hemoglobin 28.1 pg (28.0-33.3); Mean Platelet Volume 10.8 fL (9.4-12.4); Monocytes # 0.5 K/mcL (0.0-1.3); Monocytes % 7.5 %; Neutrophils # 5.1 K/mcL (1.6-8.9); Platelet Count 131 K/mcL (140-400); Red Blood Count 3.35 M/mcL (4.19-5.50); Segmented Neutrophils % 80.5 %
[2018-03-15 12:16] LABS: Calcium 8.3 mg/dL (8.6-10.3); Potassium 3.7 mEq/L (3.5-5.1)
[2018-03-15 12:36] LABS: Mean Corpuscular Volume 94.6 fL (83.0-100.0)
--- NOTE | 2018-03-16 07:27 | Urology Progress Note ---
Date of Encounter: 03/16/18 Time of Encounter: 07:26 - Assessment and Plan (1) Acquired renal cyst Current Visit: Yes Status: Acute (2) Hematuria Current Visit: Yes Status: Acute Assessment and plan: appears almost resolved. patient should have f/u with me in 2-3 weeks or have patient call his urologist at [facility]. please call with questions. patient should continue with finasteride indefinitely. Qualifiers: Hematuria type: gross Qualified Code(s): R31.0 - Gross hematuria (3) Renal cell cancer Current Visit: Yes Status: Chronic Qualifiers: Laterality: unspecified laterality Qualified Code(s): C64.9 - Malignant neoplasm of unspecified kidney, except renal pelvis (4) SARA (acute kidney injury) Current Visit: No Status: Acute Progress Note Narrative: patient seen. sleepy this am. urine on table much clearer. Objective Initial Vital Signs Temp Pulse Resp BP Pulse Ox 97.6 F 117 18 127/68 98 03/13/18 13:00 03/13/18 13:00 03/13/18 13:00 03/13/18 13:00 03/13/18 13:00 - General physical appearance Present: well developed, well nourished - Abdomen Present: soft. Absent: tender - Labs 03/15/18 11:52 03/15/18 10:32 Diabetes panel 03/15/18 Range/Units 10:32 Sodium 137 (136-145) mEq/L Potassium 3.7 (3.5-5.1) mEq/L Chloride 103 (98-107) mEq/L Carbon Dioxide 23 (23-29) mEq/L BUN 29 H (8-23) mg/dL Creatinine 1.59 H (0.70-1.30) mg/dL Glucose 186 H (70-105) mg/dL Calcium 8.3 L (8.6-10.3) mg/dL Calcium panel 03/15/18 Range/Units 10:32 Calcium 8.3 L (8.6-10.3) mg/dL Pituitary panel 03/15/18 Range/Units 10:32 Sodium 137 (136-145) mEq/L Potassium 3.7 (3.5-5.1) mEq/L Chloride 103 (98-107) mEq/L Carbon Dioxide 23 (23-29) mEq/L BUN 29 H (8-23) mg/dL Creatinine 1.59 H (0.70-1.30) mg/dL Glucose 186 H (70-105) mg/dL Calcium 8.3 L (8.6-10.3) mg/dL Adrenal panel 03/15/18 Range/Units 10:32 Sodium 137 (136-145) mEq/L Potassium 3.7 (3.5-5.1) mEq/L Chloride 103 (98-107) mEq/L Carbon Dioxide 23 (23-29) mEq/L BUN 29 H (8-23) mg/dL Creatinine 1.59 H (0.70-1.30) mg/dL Glucose 186 H (70-105) mg/dL Calcium 8.3 L (8.6-10.3) mg/dL - VTE Documentation of Mechanical Device: Intermittent pneumatic compression device Consult Discharge Plan - Plan Referrals: Haider Fraga MD [Primary Care Provider] - (Your appointment has been requested. Our offices will call you with an appointment time and date.)
[2018-03-16] MEDS: Metoprolol XL (24 HR) Succ 50 MG TAB.ER.24H PO SCH (08:30)
[2018-03-16] MEDS: *HR* Digoxin 0.125 MG TABLET PO SCH (08:30)
[2018-03-16] MEDS: Finasteride 5 MG TABLET PO SCH (08:30)
[2018-03-16] MEDS: Bumetanide 1 MG/4 ML VIAL IVP SCH ×3 (08:31→21:29)
--- NOTE | 2018-03-16 10:35 | Internal Med Progress Note ---
Hospitalist Progress Note - Encounter Date of Encounter: 03/16/18 Time of Encounter: 11:00 - Subjective Interval History: Patient with past medical history significant for left renal cell carcinoma presents with a three-week history of gross hematuria in addition to bilateral lower extremity edema secondary to acute on chronic systolic heart failure Patient with little improvement in lower extremity edema on IV diuresis. Patient also without much improvement a hematuria Family wishes placement for patient at ECF due to home safety; case management assisting with placement - Exam Vitals: Temp Pulse Resp BP Pulse Ox 98.0 F 111 16 101/61 94 03/16/18 07:18 03/16/18 07:18 03/16/18 07:18 03/16/18 07:18 03/16/18 07:18 Exam: Gen.: Nonacute distress, alert and oriented 3 ENT: Mucosal membranes moist Respiratory: Lungs are clear to auscultation bilaterally without any wheezing rhonchi or rales Cardiovascular: Normal S1 and S2 regular rate rhythm no murmurs rubs or gallops Abdomen: Soft, nontender and nondistended with positive bowel sounds Extremities: Bilateral lower extremity +1 pitting edema Skin: Normal color - Assessment and Plan (1) Goals of care, counseling/discussion Current Visit: Yes Status: Acute Assessment and Plan: Family wishes placement for patient at ECF due to home safety Case management assisting with placement (2) Hematuria Current Visit: Yes Status: Acute Assessment and Plan: Patient with resolving hematuria Patient reported of gross hematuria for approximately 3 weeks with past medical history significant for left renal cell carcinoma being managed by hematology oncologist at [facility] Patient has been hemodynamically stable and hemoglobin appears to be at baseline Patient was on Xarelto for oral anticoagulation for chronic atrial fibrillation. Urology consulted with recommendations to continue finasteride and follow-up as an outpatient (3) Renal cell cancer Current Visit: Yes Status: Chronic Assessment and Plan: Patient with a history of left renal cell carcinoma who was initially seen here at [facility] but now managed at [facility] Repeat CT exam concerning for enlarging renal mass Patient will need to keep continued follow up appointments with hematology oncology at [facility] (4) Acute on chronic systolic (congestive) heart failure Current Visit: Yes Status: Acute Assessment and Plan: Patient with worsening bilateral lower extremity edema with elevated BNP She with no improvement in bilateral 2+ pitting edema Will increase dose of IV Bumex (5) Elevated troponin Current Visit: Yes Status: Acute Assessment and Plan: Patient found to have elevated troponinon admission: 0.04->0.04->0.03->0.04 Suspect secondary to demand ischemia as troponins adynamic Continue to monitor on telemetry (6) CKD (chronic kidney disease) stage 3, GFR 30-59 ml/min Status: Acute Assessment and Plan: Patient with stable chronic CKD 3 SCr: 1.50->1.71->1.59->1.56 (7) Cirrhosis Current Visit: No Status: Acute Assessment and Plan: Patient with known history of liver cirrhosis with portal hypertension (8) Chronic a-fib Current Visit: Yes Status: Acute Assessment and Plan: Will continue patient's home dose of digoxin and rate controlled with metoprolol succinate Patient's Xarelto currently being held due to gross hematuria above However due to patient's history of cancer and A. fib he is at high risk and will consider restarting Xarelto once hematuria has resolved (9) Chronic anemia Current Visit: Yes Status: Acute Assessment and Plan: Stable; continue to monitor Will continue patient's home dose of ferrous gluconate DVT Prophylaxis: Xarelto currently being held due to hematuria above - Time Spent with Patient Total time spent is greater than 50% in coordination of care (as documented) at patient's floor/unit and/or counseling patient: Internal Medicine: Result - Labs CBC & Chem 7: 03/16/18 10:48 03/16/18 10:48 Labs: Short CBC 03/15/18 Range/Units 11:52 WBC 6.3 (4.3-11.1) K/mcL Hgb 9.4 L (12.9-16.9) g/dL Hct 31.7 L (37.5-50.1) % Plt Count 131 L (140-400) K/mcL Neutrophils # 5.1 (1.6-8.9) K/mcL BMP 03/15/18 10:32 Sodium 137 Potassium 3.7 Chloride 103 Carbon Dioxide 23 BUN 29 H Creatinine 1.59 H Glucose 186 H Calcium 8.3 L - ABG Interpretation ABG results: PT/INR, D-dimer PT 23.0 Seconds (9.4-12.1) H 03/13/18 13:24 - VTE Documentation of Mechanical Device: Intermittent pneumatic compression device Consult Discharge Plan - Plan Additional Instructions: [facility] has been [facility] for you. They will contact you within 48 hours to set up admission date and time. If you need to contact them for any reason their phone number is #[phone]. Referrals: Haider Fraga MD [Primary Care Provider] - (Your appointment has been requested. Our offices will call you with an appointment time and date.) (2) Hematuria Qualifiers: Hematuria type: gross Qualified Code(s): R31.0 - Gross hematuria (3) Renal cell cancer Qualifiers: Laterality: unspecified laterality Qualified Code(s): C64.9 - Malignant neoplasm of unspecified kidney, except renal pelvis (7) Cirrhosis Qualifiers: Qualified Code(s): K74.60 - Unspecified cirrhosis of liver
[2018-03-16 10:57] LABS: Immature Granulocytes % 0.3 % (0-4)
[2018-03-16 10:58] LABS: Basophils % 0.7 %; Eosinophils # 0.1 K/mcL (0.0-0.6); Eosinophils % 0.9 %; Hematocrit 30.9 % (37.5-50.1); Hemoglobin 8.8 g/dL (12.9-16.9); Lymphocytes # 0.5 K/mcL (0.6-4.6); Lymphocytes % 8.6 %; Mean Corpuscular HGB Conc 28.5 g/dL (31.6-35.5); Mean Corpuscular Hemoglobin 28.4 pg (28.0-33.3); Mean Corpuscular Volume 99.7 fL (83.0-100.0); Mean Platelet Volume 9.9 fL (9.4-12.4); Monocytes # 0.5 K/mcL (0.0-1.3); Monocytes % 8.4 %; Neutrophils # 4.7 K/mcL (1.6-8.9); Platelet Count 119 K/mcL (140-400); Red Cell Distribution Width 19.3 % (11.5-14.5); Segmented Neutrophils % 81.1 %
[2018-03-16 11:15] LABS: Hypochromasia Present (Not Present); Platelet Estimate Slight Decrease (Normal)
[2018-03-16 11:41] LABS: Calcium 8.4 mg/dL (8.6-10.3); Potassium 3.7 mEq/L (3.5-5.1)
--- NOTE | 2018-03-16 13:56 | Electrocardiograph Report ---
[address] [place], [place] [address] Test Date: 2018-03-13 Pat Name: Nahid Sunshine Department: [id number] Room: 3B12 Gender: M Sound Assistant: : [id number] Requested By: James Helton Order Number: [id number] Reading MD: Manas Vivas Measurements Intervals [place] Rate: 101 P: [place]: QRS: -44 QRSD: 142 T: 127 QT: 405 QTc: 525 Interpretive Statements Atrial fibrillation with PVCs Left bundle branch block Electronically Signed On 03-16-2018 13:54:40 EST by Manas Vivas
--- NOTE | 2018-03-17 10:41 | Internal Med Progress Note ---
Hospitalist Progress Note - Encounter Date of Encounter: 03/17/18 Time of Encounter: 11:00 - Subjective Interval History: Patient with past medical history significant for left renal cell carcinoma presents with a three-week history of gross hematuria in addition to bilateral lower extremity edema secondary to acute on chronic systolic heart failure Patient with little improvement in lower extremity edema on IV diuresis. Family wishes placement for patient at ECF due to home safety; case management assisting with placement - Exam Vitals: Temp Pulse Resp BP Pulse Ox 97.6 F 101 18 107/64 97 03/17/18 10:17 03/17/18 10:17 03/17/18 10:17 03/17/18 10:17 03/17/18 10:17 Exam: Gen.: Nonacute distress, alert and oriented 3 ENT: Mucosal membranes moist Respiratory: Lungs are clear to auscultation bilaterally without any wheezing rhonchi or rales Cardiovascular: Normal S1 and S2 regular rate rhythm no murmurs rubs or gallops Abdomen: Soft, nontender and nondistended with positive bowel sounds Extremities: Bilateral lower extremity +1 pitting edema Skin: Normal color - Assessment and Plan (1) Goals of care, counseling/discussion Current Visit: Yes Status: Acute Assessment and Plan: Family wishes placement for patient at ECF due to home safety Case management assisting with placement (2) Acute on chronic systolic (congestive) heart failure Current Visit: Yes Status: Acute Assessment and Plan: Patient with worsening bilateral lower extremity edema with elevated BNP Patient with no improvement in bilateral 2+ pitting edema Continue IV diuresis with Bumex 2 mg twice daily (3) Hematuria Current Visit: Yes Status: Acute Assessment and Plan: Patient with resolving hematuria Patient reported of gross hematuria for approximately 3 weeks with past medical history significant for left renal cell carcinoma being managed by hematology oncologist at [facility] Patient has been hemodynamically stable and hemoglobin appears to be at baseline Patient was on Xarelto for oral anticoagulation for chronic atrial fibrillation. Urology consulted with recommendations to continue finasteride and follow-up as an outpatient (4) Renal cell cancer Current Visit: Yes Status: Chronic Assessment and Plan: Patient with a history of left renal cell carcinoma who was initially seen here at [facility] but now managed at [facility] Repeat CT exam concerning for enlarging renal mass Patient will need to keep continued follow up appointments with hematology oncology at [facility] (5) Elevated troponin Current Visit: Yes Status: Acute Assessment and Plan: Patient found to have elevated troponinon admission: 0.04->0.04->0.03->0.04 Suspect secondary to demand ischemia as troponins adynamic Continue to monitor on telemetry (6) CKD (chronic kidney disease) stage 3, GFR 30-59 ml/min Status: Acute Assessment and Plan: Patient with stable chronic CKD 3 SCr: 1.50->1.71->1.59->1.56->1.49 (7) Cirrhosis Current Visit: No Status: Acute Assessment and Plan: Patient with known history of liver cirrhosis with portal hypertension (8) Chronic a-fib Current Visit: Yes Status: Acute Assessment and Plan: Will continue patient's home dose of digoxin and rate controlled with metoprolol succinate Patient's Xarelto currently being held due to gross hematuria above However due to patient's history of cancer and A. fib he is at high risk and will consider restarting Xarelto once hematuria has resolved (9) Chronic anemia Current Visit: Yes Status: Acute Assessment and Plan: Stable; continue to monitor Will continue patient's home dose of ferrous gluconate DVT Prophylaxis: Xarelto currently being held due to hematuria above - Time Spent with Patient Total time spent is greater than 50% in coordination of care (as documented) at patient's floor/unit and/or counseling patient: Internal Medicine: Result - Labs CBC & Chem 7: 03/17/18 11:37 03/17/18 11:37 Labs: Short CBC 03/16/18 Range/Units 10:48 WBC 5.8 (4.3-11.1) K/mcL Hgb 8.8 L (12.9-16.9) g/dL Hct 30.9 L (37.5-50.1) % Plt Count 119 L (140-400) K/mcL Neutrophils # 4.7 (1.6-8.9) K/mcL BMP 03/16/18 10:48 Sodium 136 Potassium 3.7 Chloride 101 Carbon Dioxide 22 L BUN 28 H Creatinine 1.56 H Glucose 175 H Calcium 8.4 L - ABG Interpretation ABG results: PT/INR, D-dimer PT 23.0 Seconds (9.4-12.1) H 03/13/18 13:24 - VTE Documentation of Mechanical Device: Intermittent pneumatic compression device Consult Discharge Plan - Plan Additional Instructions: [facility] has been set up for you. They will contact you within 48 hours to set up admission date and time. If you need to contact them for any reason their phone number is #[phone]. Referrals: Ana Paula Dewitt CNP [Advanced Practice Nurse] - 03/23/18 11:00 am (3) Hematuria Qualifiers: Hematuria type: gross Qualified Code(s): R31.0 - Gross hematuria (4) Renal cell cancer Qualifiers: Laterality: unspecified laterality Qualified Code(s): C64.9 - Malignant neoplasm of unspecified kidney, except renal pelvis (7) Cirrhosis Qualifiers: Qualified Code(s): K74.60 - Unspecified cirrhosis of liver
[2018-03-17] MEDS: Metoprolol XL (24 HR) Succ 50 MG TAB.ER.24H PO SCH (11:01)
[2018-03-17] MEDS: Finasteride 5 MG TABLET PO SCH (11:01)
[2018-03-17] MEDS: *HR* Digoxin 0.125 MG TABLET PO SCH (11:01)
[2018-03-17] MEDS: Bumetanide 1 MG/4 ML VIAL IVP SCH ×2 (11:05→16:55)
[2018-03-17 11:49] LABS: Basophils % 0.5 %; Eosinophils # 0.1 K/mcL (0.0-0.6); Hematocrit 31.2 % (37.5-50.1); Hemoglobin 9.3 g/dL (12.9-16.9); Immature Granulocytes % 0.5 % (0-4); Lymphocytes # 0.6 K/mcL (0.6-4.6); Lymphocytes % 9.2 %; Mean Corpuscular HGB Conc 29.8 g/dL (31.6-35.5); Mean Corpuscular Hemoglobin 27.8 pg (28.0-33.3); Mean Platelet Volume 9.6 fL (9.4-12.4); Monocytes # 0.5 K/mcL (0.0-1.3); Monocytes % 7.3 %; Neutrophils # 5.1 K/mcL (1.6-8.9); Platelet Count 138 K/mcL (140-400); Red Blood Count 3.35 M/mcL (4.19-5.50); Segmented Neutrophils % 81.5 %
[2018-03-17 12:05] LABS: Calcium 8.6 mg/dL (8.6-10.3); Potassium 3.9 mEq/L (3.5-5.1)
[2018-03-17 12:12] LABS: Mean Corpuscular Volume 93.1 fL (83.0-100.0)
[2018-03-18 08:54] VITALS: BP 115/62
--- NOTE | 2018-03-18 08:55 | Discharge Summary ---
- NOTES TO OUTPATIENT PROVIDER Notes to Outpatient Provider: Patient with history of renal cell carcinoma, chronic atrial fibrillation, liver cirrhosis, systolic congestive heart failure and chronic kidney disease stage III who was hospitalized here due to gross hematuria. Patient has been on Xarelto for anticoagulation due to A. fib. His Xarelto was stopped and urology was consulted. Patient also had lower extremity swelling concerning for congestive heart failure and was treated with intravenous diuretics. Hematuria subsided after the Xarelto was held. Patient did not require any transfusion. He is now doing well overall. She is stable to be discharged home with home health per recommendations from physical therapy. Patient is to continue to hold Xarelto for now and follow up with his primary care provider/clothing manager for further recommendations as to restarting it at a later date. Orders not resulted at time of discharge: Pending orders 03/13/18 13:24 Culture,Blood [BC] Stat Date of Encounter: 03/18/18 Time of Encounter: 08:50 - Discharge Diagnosis (1) Hematuria Priority: Primary Status: Acute Qualifiers: Hematuria type: gross Qualified Code(s): R31.0 - Gross hematuria (2) Cirrhosis Priority: Secondary Status: Acute Qualifiers: Qualified Code(s): K74.60 - Unspecified cirrhosis of liver (3) Renal cell cancer Priority: Secondary Status: Chronic Qualifiers: Laterality: unspecified laterality Qualified Code(s): C64.9 - Malignant neoplasm of unspecified kidney, except renal pelvis (4) CKD (chronic kidney disease) stage 3, GFR 30-59 ml/min Priority: Secondary Status: Acute (5) Acute on chronic systolic (congestive) heart failure Priority: Secondary Status: Acute (6) Elevated troponin Priority: Secondary Status: Acute (7) Chronic a-fib Priority: Secondary Status: Acute (8) Chronic anemia Priority: Secondary Status: Acute (9) Goals of care, counseling/discussion Priority: Secondary Status: Acute Hospital course: Mr. Sunshine is a 87 year old male Patient with history of renal cell carcinoma, chronic atrial fibrillation, liver cirrhosis, systolic congestive heart failure and chronic kidney disease stage III who was hospitalized here due to gross hematuria. Patient has been on Xarelto for anticoagulation due to A. fib. His Xarelto was stopped and urology was consulted. Patient also had lower extremity swelling concerning for congestive heart failure and was treated with intravenous diuretics. Hematuria subsided after the Xarelto was held. Patient did not require any transfusion. He is now doing well overall. She is stable to be discharged home with home health per recommendations from physical therapy. Patient is to continue to hold Xarelto for now and follow up with his primary care provider/clothing manager for further recommendations as to restarting it at a later date. Discharge discussed with: patient, nurse, case management - Time Spent with Patient Total time spent providing and/or coordinating discharge services: Greater than 30 minutes (32 min) - Discharge Medications Prescriptions: Finasteride [Proscar] 5 mg PO DAILY #30 tablet Home Medications: Allopurinol [Zyloprim 100 MG] 200 mg PO DAILY 11/29/17 [History] Atorvastatin [Lipitor] 20 mg PO HS 11/29/17 [History] Cholecalciferol (Vitamin D3) [Vitamin D3] 2,000 unit PO DAILY 11/29/17 [History] Digoxin [Lanoxin] 0.125 mg PO DAILY 11/29/17 [History] Ferrous Gluconate 324 mg PO BID 11/29/17 [History] Vitamin B Complex [B Complex] 1 each PO DAILY 11/29/17 [History] Ascorbic Acid [Vitamin C] 500 mg PO 0630 #30 tablet 12/03/17 [Rx] Tamsulosin [Flomax] 0.4 mg PO DAILY #30 capsule 12/03/17 [Rx] Bumetanide 8 mg PO DAILY 03/13/18 [History] Metoprolol Succinate [Toprol Xl] 50 mg PO DAILY 03/13/18 [History] Finasteride [Proscar] 5 mg PO DAILY #30 tablet 03/18/18 [Rx] Allergies/Adverse Reactions: Allergy/AdvReac Type Severity Reaction Status Date / Time No Known Allergies Allergy Verified 12/29/16 13:55 Date of admission: 03/15/18 19:17 Primary care physician: Haider Fraga MD Consults: 03/13/18 18:55 Consult to Physical Therapy [CONS] Routine Comment: Evaluate, develop and implement POC Reason for Consult: Home safety Does patient have active BEDREST order?: No Is patient medically & hemodynamically stable?: Yes Patient assessed for mobility or mobilized this visit?: No 03/13/18 18:56 Consult to Oncology Hematology [CONS] Routine Consulting Provider: Natty Naqvi Reason for Consult: History of left renal cell carcinoma with hematuria Call Completed: No Consult to Urology [CONS] Routine Consulting Provider: Gypsy Sosa Reason for Consult: Gross hematuria with history of left renal cell carcinoma Call Completed: No 03/14/18 11:56 Consult to Setter Out [CONS] Routine Reason for SW Consult: family is interested in possible placement due to patients increased confusion. Discharging clinician: Dakota Knight Anticipated date of discharge: 03/18/18 - Constitutional Vitals: Temp Pulse Resp BP Pulse Ox 97.9 F 81 16 106/67 96 03/18/18 03:59 03/18/18 03:59 03/18/18 03:59 03/18/18 03:59 03/18/18 03:59 General appearance: Present: A&O X 3, pleasant, no acute distress, answers questions appropriately Exam: . - Respiratory Respiratory exam: Present: CTAB. Absent: accessory muscle use, rales, rhonchi, wheezes - Cardiovascular Cardiovascular exam: Present: RRR, +S1, +S2. Absent: diastolic murmur, gallop, rubs, systolic murmur - GI/Abdominal GI/Abdominal exam: Present: normal bowel sounds, soft, no peritoneal signs. Absent: distended, tenderness - Extremities Exam Extremities exam: Present: pedal edema (mild), warm, radial pulses palpable and symmetrical. Absent: calf tenderness, cyanotic - Patient Status Disposition: Home Health Service Condition: Good Functional capacity at discharge: uses cane/walker Overall status at discharge: patient is progressing back to baseline - Discharge Instructions Instructions: Atrial Fibrillation (DC), Anemia (GEN) Follow Up With: Ana Paula Dewitt CNP [Advanced Practice Nurse] - 03/23/18 11:00 am Additional Instructions: [facility] for you. They will contact you within 48 hours to set up admission date and time. If you need to contact them for any reason their phone number is #[phone]. - Diet and Activity Activity: increase activity as tolerated Diet: low fat, low cholesterol, low salt diet - VTE Documentation of Mechanical Device: Intermittent pneumatic compression device
--- NOTE | 2018-03-18 09:04 | Physician Discharge Referral ---
Home Health/Hosp Referral Info Transfer to: Home Health Provider in Charge Post Discharge: PCP - Diagnosis (1) Hematuria Priority: Primary Status: Acute (2) Cirrhosis Priority: Secondary Status: Acute (3) Renal cell cancer Priority: Secondary Status: Chronic (4) CKD (chronic kidney disease) stage 3, GFR 30-59 ml/min Priority: Secondary Status: Acute (5) Acute on chronic systolic (congestive) heart failure Priority: Secondary Status: Acute (6) Elevated troponin Priority: Secondary Status: Acute (7) Chronic a-fib Priority: Secondary Status: Acute (8) Chronic anemia Priority: Secondary Status: Acute (9) Goals of care, counseling/discussion Priority: Secondary Status: Acute - Respiratory Orders Smoking Cessation: Smoking cessation has been advised. For more information, call the [employer] Tobacco Quit Line at 1-538-MHLS-NOW. - Diet/Nutrition Diet/Nutrition Orders: Cardiac - Activity Activity Orders: Walker - Services Needed Following services are medically necessary services: Nursing, Physical Therapy, Occupational Therapy - Transfer Medications Prescriptions: Finasteride [Proscar] 5 mg PO DAILY #30 tablet Home Medications: Allopurinol [Zyloprim 100 MG] 200 mg PO DAILY 11/29/17 [History] Atorvastatin [Lipitor] 20 mg PO HS 11/29/17 [History] Cholecalciferol (Vitamin D3) [Vitamin D3] 2,000 unit PO DAILY 11/29/17 [History] Digoxin [Lanoxin] 0.125 mg PO DAILY 11/29/17 [History] Ferrous Gluconate 324 mg PO BID 11/29/17 [History] Vitamin B Complex [B Complex] 1 each PO DAILY 11/29/17 [History] Ascorbic Acid [Vitamin C] 500 mg PO 0630 #30 tablet 12/03/17 [Rx] Tamsulosin [Flomax] 0.4 mg PO DAILY #30 capsule 12/03/17 [Rx] Bumetanide 8 mg PO DAILY 03/13/18 [History] Metoprolol Succinate [Toprol Xl] 50 mg PO DAILY 03/13/18 [History] Finasteride [Proscar] 5 mg PO DAILY #30 tablet 03/18/18 [Rx] Allergies/Adverse Reactions: Allergy/AdvReac Type Severity Reaction Status Date / Time No Known Allergies Allergy Verified 12/29/16 13:55 Certification: Further, I certify that my clinical findings support that this patient is homebound (i.e. absences from home require considerable and taxing effort and are for medical reasons or caodaism services or infrequently or short duration when for other reasons) because: Homebound Reason: Patient requires assistance of a person or device to safely leave home Attestation: My signature below is to certify that this patient is under my care and that I, or nurse practitioner, or a physician's front end assistant working with me, has a [id number] encounter with this patient.
[2018-03-18] MEDS: Metoprolol XL (24 HR) Succ 50 MG TAB.ER.24H PO SCH (09:20)
[2018-03-18] MEDS: Bumetanide 1 MG/4 ML VIAL IVP SCH (09:20)
[2018-03-18] MEDS: Finasteride 5 MG TABLET PO SCH (09:21)
[2018-03-18] MEDS: *HR* Digoxin 0.125 MG TABLET PO SCH (09:21)
== END 2018-03-18 11:24 | disposition home health service (06) | DRG 695 ==
LOC: EMEROOARM 12:48 → 3BNU 12:48 → SUATTDRO 18:22 → 3BNU 18:53
PROVIDERS: ADMIT Internal Medicine; ATTEND Hospitalist